=== PATIENT | male | born 1980 | race Caucasian/White ===

== ENCOUNTER → 2018-11-20 | Outpatient (CLI) | payer OTHER ==
[2018-11-20 11:51] LABS: HCT 39.3 % (39.0-53.0); HGB 13.2 gm/dL (13.0-17.5); MCH 30.6 pg (25.0-35.0); MCHC 33.6 g/dL (31.0-37.0); Mean Platelet Volume 6.5; Platelet Count 250 k/uL (150-450); RBC 4.32 m/uL (4.30-5.90); RDW 12.2 % (11.5-15.5); WBC 8.4 k/uL (3.8-10.6)
[2018-11-20 16:53] LABS: African American GFR (CKD) 108.6 (60.0-200.0); Albumin 4.4 g/dL (3.80-4.90); Albumin/Globulin Ratio 2.44 (1.60-3.17); Calcium 9.2 mg/dL (8.7-10.3); Chol/HDL Ratio 3.17; Globulin 1.8 g/dL (1.6-3.3); LDL Cholesterol,Calculated 66.2 mg/dL (0.0-131.0); Non-African American GFR(CKD) 93.7 (60.0-200.0); Potassium 4.7 mmol/L (3.5-5.5); Total Bilirubin 0.4 mg/dL (0.2-1.2); Total Protein 6.2 g/dL (6.2-8.2); VLDL Calculation 22.8 mg/dL (5.00-40.00)
[2018-11-20 18:20] LABS: Hemoglobin A1C 6.5 % (4.0-6.0)
== END | disposition home or self-care (01) ==
LOC: LABWHC1 10:22
PROVIDERS: ATTEND Nurse Practitioner Adult Health
DX: K21.9 Gastro-esophageal reflux disease without esophagitis (principal); E11.69 Type 2 diabetes mellitus with other specified complication; E78.5 Hyperlipidemia, unspecified; E03.9 Hypothyroidism, unspecified; F31.9 Bipolar disorder, unspecified
CPT/HCPCS: 36415; 80053; 80061; 82306; 82607; 83036; 84439; 84443; 85027

== ENCOUNTER → 2019-06-29 | Outpatient (CLI) | payer MEDICARE ==
[2019-06-29 15:57] LABS: African American GFR (CKD) 108.6 (60.0-200.0); Albumin 4.1 g/dL (3.80-4.90); Albumin/Globulin Ratio 2.28 (1.60-3.17); Anion Gap 14.4 mmol/L (4.00-12.00); Calcium 9.1 mg/dL (8.7-10.3); Carbon Dioxide 26.6 mmol/L (21.6-31.8); Chol/HDL Ratio 3.39; Globulin 1.8 g/dL (1.6-3.3); LDL Cholesterol,Calculated 67.8 mg/dL (0.0-131.0); Non-African American GFR(CKD) 93.7 (60.0-200.0); Potassium 4.6 mmol/L (3.5-5.5); Total Bilirubin 0.3 mg/dL (0.2-1.2); Total Protein 5.9 g/dL (6.2-8.2); VLDL Calculation 30.2 mg/dL (5.00-40.00); Valproic Acid (Depakene) 60.3 ug/mL (50.0-100.0)
[2019-06-29 16:06] LABS: T4, Free (Free Thyroxine) 1.2 ng/dL (0.80-1.80)
[2019-06-29 16:53] LABS: Hemoglobin A1C 8.2 % (4.0-6.0)
== END | disposition home or self-care (01) ==
LOC: LABWHC1 09:47
PROVIDERS: ATTEND Nurse Practitioner Adult Health
DX: E11.69 Type 2 diabetes mellitus with other specified complication (principal); E03.9 Hypothyroidism, unspecified; E78.5 Hyperlipidemia, unspecified; F31.9 Bipolar disorder, unspecified
CPT/HCPCS: 36415; 80053; 80061; 80164; 82306; 83036; 84439; 84443

== ENCOUNTER → 2019-11-02 | Outpatient (CLI) | payer MEDICARE, OTHER ==
[2019-11-02 18:39] LABS: African American GFR (CKD) 107.9 (60.0-200.0); Anion Gap 11.8 mmol/L (4.00-12.00); Calcium 9.3 mg/dL (8.7-10.3); Carbon Dioxide 28.2 mmol/L (21.6-31.8); Chol/HDL Ratio 3.28; LDL Cholesterol,Calculated 59.8 mg/dL (0.0-131.0); Non-African American GFR(CKD) 93.1 (60.0-200.0); Potassium 4.2 mmol/L (3.5-5.5); VLDL Calculation 22.2 mg/dL (5.00-40.00)
[2019-11-02 22:18] LABS: Hemoglobin A1C 8.2 % (4.0-6.0)
== END | disposition home or self-care (01) ==
LOC: LABWHC1 11:01
PROVIDERS: ATTEND Nurse Practitioner Adult Health
DX: E11.69 Type 2 diabetes mellitus with other specified complication (principal); E55.9 Vitamin D deficiency, unspecified; E03.9 Hypothyroidism, unspecified; E78.5 Hyperlipidemia, unspecified
CPT/HCPCS: 36415; 80048; 80061; 82306; 83036; 84443

== ENCOUNTER → 2020-01-30 | Outpatient (CLI) | payer MEDICARE, OTHER ==
[2020-01-30 18:28] LABS: African American GFR (CKD) 96.1 (60.0-200.0); Anion Gap 9.3 mmol/L (4.00-12.00); BUN/Creat Ratio 18.18 Ratio (12.00-20.00); Calcium 9.6 mg/dL (8.7-10.3); Carbon Dioxide 32.7 mmol/L (21.6-31.8); Chol/HDL Ratio 3.09; Non-African American GFR(CKD) 82.9 (60.0-200.0); Potassium 4.2 mmol/L (3.5-5.5)
[2020-01-30 20:10] LABS: Hemoglobin A1C 6.4 % (4.0-6.0)
[2020-01-30 21:21] LABS: Microalbumin Creatinine Ratio <30 mg/g Creat (0-30); Urine Creatinine 19.4 mg/dL
== END | disposition home or self-care (01) ==
LOC: LABWHC1 11:40
PROVIDERS: ATTEND Nurse Practitioner Adult Health
DX: E11.65 Type 2 diabetes mellitus with hyperglycemia (principal); E78.5 Hyperlipidemia, unspecified
CPT/HCPCS: 36415; 80048; 80061; 82043; 82570; 83036

== ENCOUNTER → 2020-08-22 | Outpatient (CLI) | payer MEDICARE, OTHER ==
--- NOTE | 2020-08-22 14:36 | US ---
EXAMINATION TYPE: US scrotum with doppler. Grayscale and color Doppler Duplex imaging performed of t robert scrotum. DATE OF EXAM: 08/22/2020 COMPARISON: NONE CLINICAL HISTORY: N50.89 Testicular lump. Enlarged right testicle x 1 year EXAM MEASUREMENTS: TESTICLES: Right Testicle: 4.6 x 2.3 x 2.2 cm Left Testicle: 4.8 x 2.1 x 2.9 cm EPIDIDYMIS HEAD: Right Epididymis: 1.0 cm Left Epididymis: 1.2 cm Doppler performed to assess for testicular vascularity; good bilateral color flow and waveforms are s een. There is no evidence of testicular torsion. Presence of hydroceles: right 9.3cm with internal debris Presence of varicoceles: no IMPRESSION: Right debris-containing hydrocele.
== END | disposition home or self-care (01) ==
LOC: RADUSWWP 13:49
PROVIDERS: ATTEND Internal Medicine
DX: N43.3 Hydrocele, unspecified (principal)
CPT/HCPCS: 76870; 93975

== ENCOUNTER → 2020-12-20 | Outpatient (CLI) | payer MEDICARE, OTHER ==
--- NOTE | 2020-12-20 16:50 | CONS ---
CONSULTATION DATE OF SERVICE: 12/20/2020 This 40-year-old gentleman has been evaluated in Sleep Center for obstructive sleep apnea-hypopnea syndrome. HISTORY OF PRESENT ILLNESS/SLEEP-WAKE EVALUATION: The patient was diagnosed with obstructive sleep apnea 5 years ago in another institution. He was on treatment with CPAP. Recently he had some problems with the CPAP and at the present time he is using the CPAP of his , actually. His sleep schedule is from 9 or 9:30 p.m. until 11 a.m., basically 7 days a week. No problems with falling asleep, although has a TV set in bedroom. He sleeps on the side position. He sometimes has severe snoring, wakes up from sleep once with nocturia. During the day, he takes one nap at 2:30 p.m. [place] Sleepiness Scale is 5. No history of hypnagogic hallucinations, sleep paralysis or cataplexy. PAST MEDICAL HISTORY: Positive for depression, asthma, diabetes mellitus, hypothyroidism, swelling of the legs. PAST SURGICAL HISTORY: Surgery for pilonidal cyst, hernia repair. FAMILY HISTORY: Heart problems, cancer. REVIEW OF SYSTEMS: No fevers. No double vision. No recent chest pain. No shortness of breath. No abdominal pain. No bleeding episodes. No blood in the urine. No seizure episodes. Snoring, awakenings from sleep, episodes of sleepiness. PHYSICAL EXAMINATION: GENERAL: Pleasant gentleman without distress. VITAL SIGNS: BP 141/85, HR 90, RR 20, height 6 feet 0 inches, weight 339.2, body mass index 45.9, temperature 97.6, oxygen saturation at room air 96%. HEENT: PERRLA, EOMI, evaluation of oropharynx showed tongue protrudes midline. Extremely low position of soft palate; Mallampati IV. NECK: Supple, no JVD. Thyroid is not palpable. Neck is wide; 20-1/2 inches in circumference. LUNGS: Clear to percussion and to auscultation. Good air exchange. No wheezing or rhonchi. HEART: S1, S2 regular. No murmurs, gallops, or rubs. ABDOMEN: Obese. EXTREMITIES: One plus ankle edema. CAB SUPERVISOR: Awake, alert, and oriented X3. Cranial nerves 2 to 7 intact. There is no fasciculation or atrophy. noted. No focal deficits observed. IMPRESSION: 1. Loud snoring, awakenings from sleep, extremely low position of soft palate, wide neck, history of obstructive sleep apnea diagnosed 5 years ago. The patient is using his 's CPAP equipment. Obstructive sleep apnea-hypopnea syndrome. 2. Morbid obesity. BMI 45.9. 3. Asthma. 4. Hyperlipidemia. 5. Depression. 6. Diabetes mellitus. 7. History of hypothyroidism. 8. Leg swelling. 9. Status post pilonidal cyst surgery. 10.Status post hernia repair. PLAN: 1. Polysomnography for evaluation of patient's breathing during sleep. 2. CPAP/BiPAP titration if sleep study confirms obstructive sleep apnea-hypopnea syndrome. 3. Preferable position during sleep on the side. 4. No driving if patient feels any sleepiness. 5. I will see patient for follow up visit to explain results of testing and following plan. 6. The patient will need to get new CPAP equipment. Thank you very much for referring this patient for consultation. Sincerely, Gaurav Gomez MD, PhD, FAASM Diplomat of [place] [employer] Sleep Medicine Board of [place] [employer] Handle Sewer of [facility] [place] MMODL / KAYLAN: [id number] /
== END ==
LOC: SLEEP 13:58
PROVIDERS: ATTEND Internal Medicine
DX: G47.33 Obstructive sleep apnea (adult) (pediatric) (principal); E66.01 Morbid (severe) obesity due to excess calories; J45.909 Unspecified asthma, uncomplicated; E78.5 Hyperlipidemia, unspecified; F32.9 Major depressive disorder, single episode, unspecified; E11.9 Type 2 diabetes mellitus without complications; M79.89 Other specified soft tissue disorders; Z98.890 Other specified postprocedural states; Z86.39 Personal history of other endocrine, nutritional and metabolic disease; Z68.42 Body mass index [BMI] 45.0-49.9, adult; Z99.89 Dependence on other enabling machines and devices
CPT/HCPCS: 99211

== ENCOUNTER 2021-03-14 10:39 | Emergency (ER) | payer OTHER, MEDICARE ==
[2021-03-14 10:59] VITALS: TEMP 98.2
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
[2021-03-14 11:59] VITALS: BP 127/93; PULSE 70; RESP 16
== END 2021-03-14 13:18 | disposition home or self-care (01) ==
LOC: EC 10:39
DX: S00.83XA Contusion of other part of head, initial encounter (principal); E11.9 Type 2 diabetes mellitus without complications; V43.52XA Car driver injured in collision with other type car in traffic accident, initial encounter; Y92.410 Unspecified street and highway as the place of occurrence of the external cause
CPT/HCPCS: 70450; 72125; 99284

== ENCOUNTER → 2021-05-08 | Outpatient (CLI) | payer MEDICARE, OTHER ==
--- NOTE | 2021-05-08 17:38 | SFUN ---
SLEEP CENTER FOLLOW UP NOTE DATE OF SERVICE: 05/08/2021 This 40-year-old gentleman has been followed in Sleep Center for follow-up visit for evaluation and treatment of obstructive sleep apnea-hypopnea syndrome. The patient has a history of obstructive sleep apnea documented in the past in another institution. The patient continues to use his CPAP equipment every night, although his CPAP unit is old and needs to be replaced. Sleep study was done as a polysomnogram last year, and then we repeated the sleep study with a home sleep apnea test. The patient continues to use CPAP equipment every night; he did this before the sleep tests also. The sleep studies did not show significant respiratory abnormalities either time. Home test was not sufficient for reading because it was less than 4 hours of recording. During polysomnogram at night, patient also slept only 2 hours 12 minutes. So basically both sleep studies technically do not allow any conclusion about patient's respiration. Most probably, studies were false-negative, because again the patient continued to use his CPAP machine every night and patient who was using the machine for many years. The study could be negative which was done on the following night since the previous night patient used CPAP equipment. [place] Sleepiness Scale today is 7. MEDICATIONS: 1. Atorvastatin 10 mg once a day. 2. Benztropine 0.5 mg twice a day. 3. Divalproex 500 mg 3 tablets at bedtime. 4. Fluoxetine 20 mg 3 capsules once a day. 5. Furosemide 20 mg once a day. 6. Glipizide 10 mg once a day. 7. Januvia 100 mg once a day. PHYSICAL EXAMINATION: GENERAL: Pleasant patient in no distress. VITAL SIGNS: BP 128/76, HR 83, RR 20, weight 339.2 pounds, height 6 feet, body mass index 46, temperature 97.5, oxygen saturation at room air 98%. HEENT: PERRLA, EOMI, evaluation of oropharynx showed tongue protrudes midline. Extremely low position of soft palate; Mallampati IV. NECK: Supple, no JVD. Thyroid is not palpable. Wide neck. LUNGS: Clear to percussion and to auscultation. Good air exchange. No wheezing or rhonchi. HEART: S1, S2 regular. No murmurs, gallops, or rubs. ABDOMEN: Obese. EXTREMITIES: No clubbing or cyanosis. BIAZZI NITRATOR OPERATOR: Awake, alert, and oriented X3. Cranial nerves 2 to 7 intact. There is no fasciculation or atrophy. noted. No focal deficits observed. IMPRESSION: 1. Obstructive sleep apnea-hypopnea syndrome for 5 years, diagnosed in another institution. Sleep studies in 2020 showed insufficient recording during the home sleep apnea test and very short sleep time during the polysomnogram. Test was done on the next day after a long period of time using CPAP equipment. The patient continues to use CPAP equipment every night. Machine is old. 2. Morbid obesity. 3. Asthma. 4. Hyperlipidemia. 5. Depression. 6. Diabetes mellitus. 7. History of hypothyroidism. 8. Swelling of the legs. 9. Status post pilonidal cyst surgery. 10.Status post hernia repair. PLAN: 1. Repeat home sleep apnea test. Recording should be done for at least 4 hours. 2. Following plan after reviewing results of sleep study. Patient will need prescription for a new CPAP unit. 3. Losing weight. 4. No driving if feeling any sleepiness. Thank you very much for allowing me to participate in the management of your patient. Sincerely, Gaurav Gomez MD, PhD, FAASM Diplomat of [place] [employer] Sleep Medicine Board of [place] [employer] Shotweld Operator of [facility] [place] MMODL / KAYLAN: [id number] /
== END ==
LOC: SLEEP 14:45
PROVIDERS: ATTEND Internal Medicine
DX: G47.33 Obstructive sleep apnea (adult) (pediatric) (principal); E66.01 Morbid (severe) obesity due to excess calories; J45.909 Unspecified asthma, uncomplicated; E78.5 Hyperlipidemia, unspecified; F32.A Depression, unspecified; E03.9 Hypothyroidism, unspecified; M79.89 Other specified soft tissue disorders; E11.9 Type 2 diabetes mellitus without complications; Z98.890 Other specified postprocedural states; Z99.89 Dependence on other enabling machines and devices; Z68.42 Body mass index [BMI] 45.0-49.9, adult; Z79.84 Long term (current) use of oral hypoglycemic drugs; Z79.899 Other long term (current) drug therapy

== ENCOUNTER → 2021-09-25 | Outpatient (CLI) | payer MEDICARE, OTHER ==
--- NOTE | 2021-09-25 11:58 | P.PN ---
Subjective DATE: [] FOLLOW UP VISIT. Patient with obstructive sleep apnea hypopnea syndrome return to sleep center for follow-up visit. Recently patient had sleep study which documented obstructive sleep apnea hypopnea syndrome. Patient was initiated on PAP therapy and today is first visit after treatment was started. Patient was able to use PAP equipment every night for the whole night. She sleeps better and feel better during the day while CPAP treatment was started. The patient does not have significant problems with the mask, PAP pressure and humidification. [place] sleepiness scale is 4. I checked information from PAP unit. PAP unit pressure 5-18, average 13.3 cm H2O. Usage is 100 % nights and 83% for more then 4 hours per night, average 6 hours 38 minutes per night. Leak is 23 l/m, which is in acceptable range. Apnea Hypopnea Index is 0.8, which is normal. MEDICATIONS:1. Atorvastatin 2. Fluoxetine 3. Furosemide 4. Glipizide 5. Benztropine 6. Devaloroex During physical exam: GENERAL: A pleasant patient without any distress. VITAL SIGNS: BP 119/76, HR 82, RR 18 , weight 320.6, temperature 96.6, oxygen saturation at room air 98% . HEENT: PERRLA, EOMI.low position of soft palate, Mallapati 4 . NECK: Supple. No JVD. LUNGS: Clear to percussion and to auscultation. Good air exchange. No wheezing or rhonchi. HEART: S1, S2 regular. ABDOMEN: Soft and nontender. Obese EXTREMITIES: No clubbing or cyanosis. PHARMACEUTICAL PLANT OPERATOR: Awake, alert, and oriented x3. No focal deficit. Impressions: 1. Obstructive sleep apnea-hypopnea syndrome. Patient demonstrated great compliance with treatment, benefiting from treatment. 2. Obesity, patient lost 19 pounds since previous visit. 3. Depression. 4. Asthma. 5. Hyperlipidemia. 6. Diabetes mellitus. 7. History of hypothyroidism. 8. Status post hernia repair. Plan: 1. Continue using PAP equipment every night for the whole night. 2. To change air filter at least 1-2 times per month. 3. PAP unit should stay lower then position of the head. 4. Advised patient to remove all remaining water from humidifier canister daily and make it dry after each usage. Refill canister with fresh distilled water before each usage. 5. Sleep hygiene with regular time in bed for at least 8 hours. 6. Precautions related to driving. No driving if feel any sleepiness. 7. I will maintain prescription for PAP supplies including mask, tube, filters. 8. Follow up visit in 6 months or earlier if patient has any problems. 9. Continue losing weight. Thank you very much for allowing me to participate in the management of your patient. Gaurav Gomez MD, PhD, FAASM. Diplomat of [place] [employer] Medicine, Sleep Medicine Board by [place] [employer] Staple Laster of [facility] [place]
== END ==
LOC: SLEEP 10:56
PROVIDERS: ATTEND Internal Medicine
DX: G47.33 Obstructive sleep apnea (adult) (pediatric) (principal); E66.9 Obesity, unspecified; F32.A Depression, unspecified; J45.909 Unspecified asthma, uncomplicated; E78.5 Hyperlipidemia, unspecified; E11.9 Type 2 diabetes mellitus without complications; E03.9 Hypothyroidism, unspecified; Z98.890 Other specified postprocedural states; Z99.89 Dependence on other enabling machines and devices; Z79.84 Long term (current) use of oral hypoglycemic drugs

== ENCOUNTER → 2022-01-07 | Outpatient (CLI) | payer MEDICARE, OTHER ==
--- NOTE | 2022-01-07 16:21 | US ---
EXAMINATION TYPE: US venous doppler duplex LE LT DATE OF EXAM: 01/07/2022 4:08 PM COMPARISON: NONE CLINICAL HISTORY: M79.89 OTHER SPECIFIED SOFT TISSUE DISORDERS. Left leg swelling x 1 week SIDE PERFORMED: Left TECHNIQUE: The lower extremity deep venous system is examined utilizing real time linear array sonog walker with graded compression, doppler sonography and color-flow sonography. VESSELS IMAGED: Common Femoral Vein Deep Femoral Vein Greater Saphenous Vein * Femoral Vein Popliteal Vein Small Saphenous Vein * Proximal Calf Veins (* superficial vessels) Left Leg: Appears negative for DVT Grayscale, color doppler, spectral doppler imaging performed of the deep veins of the left lower extr emity. There is normal flow, compressibility, vascular waveforms. IMPRESSION: No ultrasound evidence for acute DVT in the left lower extremity.
== END | disposition home or self-care (01) ==
LOC: RADUSWWP 15:40
PROVIDERS: ATTEND Internal Medicine
DX: M79.89 Other specified soft tissue disorders (principal)

== ENCOUNTER → 2022-03-26 | Outpatient (CLI) | payer MEDICARE, OTHER ==
--- NOTE | 2022-03-26 11:50 | P.PN ---
Subjective DATE: [] FOLLOW UP VISIT. Patient with obstructive sleep apnea hypopnea syndrome return to sleep center for follow-up visit. Information from previous visit have been reviewed. Patient is using PAP equipment every night for the whole night, getting PAP supplies in time. The patient does not have significant problems with the mask, PAP unit and humidification. [place] sleepiness scale is 0, which is perfect. I checked information from PAP unit. PAP unit pressure 5-18, average 9.5 cm H2O. Usage is 100% and 73 % for more then 4 hours, average 6 hours per night. Leak is 31.6 l/m, which is in acceptable range. Apnea Hypopnea Index is 0.8, which is normal. Air filter is in extremely bad condition, was not changed for 6 months. MEDICATIONS:1. Omeprazole 20 mg once a day 2. Calchicine 0.6 mg once a day 3. Fluoxetine 20 mg 3 capsules once a day a day 4. Atorvastatin 10 mg once a day 5. Benztropine 0.5 mg twice a day 6. Januvia 100 mg once a day 7. Furosemide 20 mg once a day During physical exam: GENERAL: A pleasant patient without any distress. VITAL SIGNS: BP 113/78, HR 79, RR 16, weight 316.4, temperature 97.5, oxygen saturation at room air 96 % . HEENT: PERRLA, EOMI.low position of soft palate, Mallapati 4 . NECK: Supple. No JVD. LUNGS: Clear to percussion and to auscultation. Good air exchange. No wheezing or rhonchi. HEART: S1, S2 regular. ABDOMEN: Soft and nontender. Obese EXTREMITIES: No clubbing or cyanosis. COLD FOOD PACKER: Awake, alert, and oriented x3. No focal deficit. Impressions: 1. Obstructive sleep apnea-hypopnea syndrome. Patient demonstrated great compliance with treatment, benefiting from treatment. 2. Obesity, patient lost 4 pounds comparing to the previous visit. 3. Depression. 4. diabetes mellitus. 5. Hyperlipidemia. 6. History of hypothyroidism. 7. Asthma. 8. Status post hernia repair. Plan: 1. Continue using PAP equipment every night for the whole night. To change air filter immediately. 2. To change air filter at least 1-2 times per month. 3. PAP unit should stay lower then position of the head. 4. Advised patient to remove all remaining water from humidifier canister daily and make it dry after each usage. Refill canister with fresh distilled water before each usage. 5. Sleep hygiene with regular time in bed for at least 8 hours. 6. Precautions related to driving. No driving if feel any sleepiness. 7. I will maintain prescription for PAP supplies including mask, tube, filters. 8. Follow up visit in 6 months or earlier if patient has any problems. 9. Watching and losing weight. Thank you very much for allowing me to participate in the management of your patient. Gaurav Gomez MD, PhD, FAASM. Diplomat of [place] [employer] Sleep Medicine, Sleep Medicine Board by [place] [employer] Order Desk Caller of [facility] [place]
== END ==
LOC: SLEEP 11:07
PROVIDERS: ATTEND Internal Medicine
DX: G47.33 Obstructive sleep apnea (adult) (pediatric) (principal); Z99.89 Dependence on other enabling machines and devices; E66.9 Obesity, unspecified; F32.A Depression, unspecified; E11.9 Type 2 diabetes mellitus without complications; E78.5 Hyperlipidemia, unspecified; J45.909 Unspecified asthma, uncomplicated; Z98.890 Other specified postprocedural states; Z86.39 Personal history of other endocrine, nutritional and metabolic disease
CPT/HCPCS: 99212

== ENCOUNTER → 2022-10-22 | Outpatient (CLI) | payer MEDICARE, OTHER ==
--- NOTE | 2022-10-22 11:36 | P.PN ---
Subjective DATE: 10/22/2022 FOLLOW UP VISIT. Patient with obstructive sleep apnea hypopnea syndrome return to sleep center for follow-up visit. Information from previous visit have been reviewed. Patient is using PAP equipment every night for the whole night, getting PAP supplies in time. The patient does not have significant problems with the mask, PAP unit and humidification. [place] sleepiness scale is 5, which is normal. I checked information from PAP unit. PAP unit pressure 5-18, average 10.4 cm H2O. Usage is 100% and 83 % for more then 4 hours, average 6.25 hours per night. Leak is 27.0 l/m, which is in acceptable range. Apnea Hypopnea Index is 0.7, which is normal. MEDICATIONS:1. Fluoxetine 20 mg 3 cupsules a day 2. Omeprazole 20 mg once a day 3. Atorvastatin 10 mg once a day 4. Benztropine 0.5 mg twice a day 5. Januvia 100 mg once a day 6. Furosemide 20 mg once a day During physical exam: GENERAL: A pleasant patient without any distress. VITAL SIGNS: BP 109/72, HR 74, RR 18, weight 314.0, temperature 97.9, oxygen saturation at room air 99 % . HEENT: PERRLA, EOMI.low position of soft palate, Mallapati 4 . NECK: Supple. No JVD. LUNGS: Clear to percussion and to auscultation. Good air exchange. No wheezing or rhonchi. HEART: S1, S2 regular. ABDOMEN: Soft and nontender.[] EXTREMITIES: No clubbing or cyanosis. SOLID WASTE DIVISION SUPERVISOR: Awake, alert, and oriented x3. No focal deficit. Impressions: 1. Obstructive sleep apnea-hypopnea syndrome. Patient demonstrated great compliance with treatment, benefiting from treatment. 2. Diabetes mellitus. 3. History of depression. 4. Hyperlipidemia. 5. History of hypothyroidism. 6. History of asthma. 7. Status post hernia repair. 8. CT, patient lost 2 pounds since previous visit. Plan: 1. Continue using PAP equipment every night for the whole night. 2. To change air filter at least 1-2 times per month. 3. PAP unit should stay lower then position of the head. 4. Advised patient to remove all remaining water from humidifier canister daily and make it dry after each usage. Refill canister with fresh distilled water before each usage. 5. Sleep hygiene with regular time in bed for at least 8 hours. 6. Precautions related to driving. No driving if feel any sleepiness. 7. I will maintain prescription for PAP supplies including mask, tube, filters. 8. Follow up visit in 6 months or earlier if patient has any problems. 9. Watching and continue losing weight. Thank you very much for allowing me to participate in the management of your patient. Gaurav Gomez MD, PhD, FAASM. Diplomat of [place] [employer] Sleep Medicine, Sleep Medicine Board by [place] [employer] Seafood Packer of [facility] [place]
== END ==
LOC: 3 N SLEEP 10:45
PROVIDERS: ATTEND Internal Medicine
DX: G47.33 Obstructive sleep apnea (adult) (pediatric) (principal); E03.9 Hypothyroidism, unspecified; E11.9 Type 2 diabetes mellitus without complications; E78.5 Hyperlipidemia, unspecified; F32.A Depression, unspecified; J45.909 Unspecified asthma, uncomplicated; Z79.84 Long term (current) use of oral hypoglycemic drugs; Z79.899 Other long term (current) drug therapy; Z98.890 Other specified postprocedural states
CPT/HCPCS: 99212

== ENCOUNTER → 2022-12-17 | Outpatient (CLI) | payer MEDICARE, OTHER ==
--- NOTE | 2022-12-17 11:57 | CA ---
Stress Echo Report Ashu Rodríguez Age: 42 Gender: M : 1980 Exam Date: 12/17/2022 10:17 Exam Location: [facility] Ht (in): 73 Wt (lb): 306 Ordering Physician: Gerson Ann MD Referring Physician: HAMLET,, Manager Combination: Silvia Giles RDCS Technologist Procedure CPT: Indication: R07.9 CHEST PAIN ICD-9 Codes: Rhythm: Patient History: Chest pain and shortness of breath Cardiac Medications: METFORMIN,,,,,, SERTRALINE,,,,,, QUETIAPINE,,,,,, FUMARATE,,,,,, OXCARBAZEPINE,,,,,, METOPROLOL,,,,,, LORAZEPAM,,,,,, FEROSUL,,,,, Medications in past 24 hours: Contrast: Stress Results Protocol: Rock Total dose(mL): Exercise Duration (min:sec): Max ST Depression (mm): Angina Score: Means Score: METS: 6.2 Resting HR: 78 Resting BP: 101 / 65 Peak HR: 153 Peak BP: 152 / 64 Max Predicted HR: 176 87 % Max Predicted HR Target HR: 150 Double Product: [id number] Stress Summary: BP Response: Reason for Termination: MAX EXERTION/TARGET HR Cardiac Symptoms: DIFFICULTY IN BREATHING ECG Analysis Resting ECG: Stress ECG: Arrhythmia: Echo Analysis Resting Echo: Peak Echo Analysis: MEASUREMENTS (Male/Female) Normal Values CONCLUSIONS Good exercise capacity and a Rock protocol Normal heart rate and blood pressure response Normal twelve-lead EKG at baseline with incomplete right bundle branch block pattern No ECG or echocardiographic evidence for ischemia Excellent augmentation of overall LV contractility without development of any wall motion abnormality Dr. Andrew Garcia MD (Electronically Signed) Final Date: 17 December 2022 11:56
== END | disposition home or self-care (01) ==
LOC: RADNMMAIN 09:43
PROVIDERS: ATTEND Internal Medicine
DX: R07.9 Chest pain, unspecified (principal)
CPT/HCPCS: 93351

== ENCOUNTER → 2023-04-10 | Outpatient (CLI) | payer MEDICARE, OTHER ==
[2023-04-10 15:59] LABS: Basophils # (A) 0.05 X 10*3/uL (0.00-0.10); Basophils % (A) 0.7 %; Eosinophils # (A) 0.27 X 10*3/uL (0.04-0.35); Eosinophils % (A) 3.9 %; HCT 38.9 % (39.6-50.0); HGB 12.7 g/dL (13.0-17.0); Lymphocytes # (A) 1.98 X 10*3/uL (0.90-5.00); Lymphocytes % (A) 28.5 %; MCH 30.4 pg (27.0-32.0); MCHC 32.6 g/dL (32.0-37.0); MCV 93.1 FL (80.0-97.0); Mean Platelet Volume 9.5 FL (9.5-12.2); Monocytes # (A) 0.55 X 10*3/uL (0.20-1.00); Monocytes % (A) 7.9 %; NRBC Per 100 WBC 0 X 10*3/uL (0.00-0.01); Neutrophils # (A) 4.05 X 10*3/uL (1.80-7.70); Neutrophils % (A) 58.3 %; Platelet Count 260 X 10*3/uL (140-440); RBC 4.18 X 10*6/uL (4.40-5.60); WBC 6.95 X 10*3/uL (4.50-10.00)
[2023-04-10 16:57] LABS: % Iron Saturation 17.58 (15.00-50.00); ALT 15 U/L (10-49); AST 15 U/L (14-35); Albumin 4.4 g/dL (3.8-4.9); Alkaline Phosphatase 56 U/L (41-126); Blood Urea Nitrogen 12.9 mg/dL (9.0-27.0); Carbon Dioxide 29.4 mmol/L (21.6-31.8); Chloride 98 mmol/L (96-109); Globulin 2.1 g/dL (1.6-3.3); Glucose 153 mg/dL (70-110); Iron 64 UG/DL (65-175); LDL Cholesterol,Calculated 58.3 mg/dL (0.0-131.0); Magnesium 1.7 mg/dL (1.5-2.4); Potassium 4.8 mmol/L (3.5-5.5); Sodium 140 mmol/L (135-145); T4, Free (Free Thyroxine) 1.48 ng/dL (0.80-1.80); Total Bilirubin 0.3 mg/dL (0.3-1.2); Total Iron Binding Capacity 364 UG/DL (228-460); Total Protein 6.5 g/dL (6.2-8.2); Uric Acid 7.5 mg/dL (3.7-8.7); VLDL Calculation 18.48 mg/dL (5.00-40.00)
[2023-04-10 18:06] LABS: Valproic Acid (Depakene) 59.2 UG/ML (50.0-100.0)
== END | disposition home or self-care (01) ==
LOC: LABWHC1 10:10
PROVIDERS: ATTEND Internal Medicine
DX: E11.9 Type 2 diabetes mellitus without complications (principal); M10.9 Gout, unspecified; E03.9 Hypothyroidism, unspecified; F31.9 Bipolar disorder, unspecified; D64.9 Anemia, unspecified; Z79.899 Other long term (current) drug therapy
CPT/HCPCS: 36415; 80053; 80061; 80164; 82306; 82607; 82728; 82746; 83036; 83540; 83550; 83735; 84439; 84443; 84550; 85025

== ENCOUNTER → 2023-05-06 | Outpatient (CLI) | payer MEDICARE, OTHER ==
--- NOTE | 2023-05-06 11:36 | P.PN ---
Subjective DATE: 05/06/2023 FOLLOW UP VISIT. Patient with obstructive sleep apnea hypopnea syndrome return to sleep center for follow-up visit. Information from previous visit have been reviewed. Patient is using PAP equipment every night for the whole night, getting PAP supplies in time. The patient does not have significant problems with the mask, PAP unit and humidification. [place] sleepiness scale is 0. I checked information from PAP unit. PAP unit pressure 5-18, average 17 cm H2O. Usage is 90 % for more then 4 hours, average 5.7 hours per night. Leak is 30 l/m, which is in acceptable range. Apnea Hypopnea Index is 0.7, which is normal. According to patient occasionally he has snoring. MEDICATIONS:1. Omeprazole 20 mg once a day 2. Atorvastatin 10 mg once a day 3. Fluoxetine 20 mg 3 capsules a day 4. Januvia 100 mg once a day 5. Benztropine 0.5 mg twice a day 6. Furosemide 20 mg once a day During physical exam: GENERAL: A pleasant patient without any distress. VITAL SIGNS: BP 106/68, HR 72, RR 16 , weight 304.0, temperature 97.6, oxygen saturation at room air 98 % . HEENT: PERRLA, EOMI.low position of soft palate, Mallapati 4 . NECK: Supple. No JVD. LUNGS: Clear to percussion and to auscultation. Good air exchange. No wheezing or rhonchi. HEART: S1, S2 regular. ABDOMEN: Soft and nontender. Obese EXTREMITIES: No clubbing or cyanosis. TECHNICAL PLANNER: Awake, alert, and oriented x3. No focal deficit. Impressions: 1. Obstructive sleep apnea-hypopnea syndrome. Patient demonstrated great compliance with treatment, benefiting from treatment. 2. History of depression. 3. Diabetes mellitus. 4. Hyperlipidemia. 5. History of hypothyroidism. 6. Obesity, patient lost 10 pounds comparing with previous visit. 7. History of asthma. 8. Status post hernia repair. Plan: 1. Continue using PAP equipment every night for the whole night. I adjusted pressure in CPAP to the range 5-19 with a goal to prevent snoring. 2. To change air filter at least 1-2 times per month. 3. PAP unit should stay lower then position of the head. 4. Advised patient to remove all remaining water from humidifier canister daily and make it dry after each usage. Refill canister with fresh distilled water before each usage. 5. Sleep hygiene with regular time in bed for at least 8 hours. 6. Precautions related to driving. No driving if feel any sleepiness. 7. I will maintain prescription for PAP supplies including mask, tube, filters. 8. Watching and continue losing weight. 9. Follow up visit in 6 months or earlier if patient has any problems. Thank you very much for allowing me to participate in the management of your patient. Gaurav Gomez MD, PhD, FAASM. Diplomat of [place] [employer], Sleep Medicine Board by [place] [employer] Engineer First Assistant of [facility] [place]
== END ==
LOC: 3 N SLEEP 10:47
PROVIDERS: ATTEND Internal Medicine
DX: G47.33 Obstructive sleep apnea (adult) (pediatric) (principal); F32.A Depression, unspecified; E11.9 Type 2 diabetes mellitus without complications; E78.5 Hyperlipidemia, unspecified; E03.9 Hypothyroidism, unspecified; E66.9 Obesity, unspecified; J45.909 Unspecified asthma, uncomplicated; Z98.890 Other specified postprocedural states; Z79.899 Other long term (current) drug therapy; Z79.84 Long term (current) use of oral hypoglycemic drugs; Z99.89 Dependence on other enabling machines and devices

== ENCOUNTER → 2024-01-27 | Outpatient (CLI) | payer MEDICARE, OTHER ==
[2024-01-27 18:15] LABS: Basophils # (A) 0.07 X 10*3/uL (0.00-0.10); Basophils % (A) 0.8 %; Eosinophils # (A) 0.19 X 10*3/uL (0.04-0.35); Eosinophils % (A) 2.3 %; HCT 33.4 % (39.6-50.0); HGB 11.1 g/dL (13.0-17.0); Lymphocytes # (A) 2.95 X 10*3/uL (0.90-5.00); Lymphocytes % (A) 35.3 %; MCHC 33.2 g/dL (32.0-37.0); MCV 90.3 FL (80.0-97.0); Mean Platelet Volume 9.4 FL (9.5-12.2); Monocytes # (A) 0.83 X 10*3/uL (0.20-1.00); Monocytes % (A) 9.9 %; NRBC Per 100 WBC 0 X 10*3/uL (0.00-0.01); Neutrophils # (A) 4.22 X 10*3/uL (1.80-7.70); Neutrophils % (A) 50.6 %; Platelet Count 220 X 10*3/uL (140-440); WBC 8.35 X 10*3/uL (4.50-10.00)
[2024-01-27 18:47] LABS: % Iron Saturation 14.51 (15.00-50.00); BUN/Creat Ratio 10.88 Ratio (12.00-20.00); Blood Urea Nitrogen 8.7 mg/dL (9.0-27.0); Calcium 9.1 mg/dL (8.7-10.3); Carbon Dioxide 26.9 mmol/L (21.6-31.8); Chloride 99 mmol/L (96-109); Glucose 114 mg/dL (70-110); Iron 56 UG/DL (65-175); Potassium 4.6 mmol/L (3.5-5.5); Sodium 137 mmol/L (135-145); Total Iron Binding Capacity 386 UG/DL (228-460)
== END | disposition home or self-care (01) ==
LOC: LABWHC1 14:21
PROVIDERS: ATTEND Internal Medicine
DX: D64.9 Anemia, unspecified (principal)
CPT/HCPCS: 36415; 80048; 82607; 82728; 82746; 83540; 83550; 85025

== ENCOUNTER → 2024-01-27 | Outpatient (CLI) | payer MEDICARE, OTHER ==
[2024-01-27 15:14] VITALS: BP 131/80; PULSE 72; RESP 18; TEMP 97.9
--- NOTE | 2024-01-27 15:32 | P.PROGSL ---
Subjective DATE: 01/27/2024 FOLLOW UP VISIT. Patient with obstructive sleep apnea hypopnea syndrome return to sleep center for follow-up visit. Information from previous visit have been reviewed. Patient was not able to use CPAP equipment for last several months, because his power cord is broken. [place] sleepiness scale is 4, which is normal. Patient brought his CPAP unit, but again I was not able to check it because power cord is broken. During previous visit patient showed great compliance with CPAP treatment. MEDICATIONS have been reviewed, please see below. During physical exam: GENERAL: A pleasant patient without any distress. VITAL SIGNS: Please see below, weight is 335 lbs. HEENT: PERRLA, EOMI.low position of soft palate, Mallapati 4 . NECK: Supple. No JVD. LUNGS: Clear to percussion and to auscultation. Good air exchange. No wheezing or rhonchi. HEART: S1, S2 regular. ABDOMEN: Soft and nontender. Obese EXTREMITIES: No clubbing or cyanosis. HEDIS ANALYST: Awake, alert, and oriented x3. No focal deficit. Impressions: 1. Obstructive sleep apnea-hypopnea syndrome. Patient was not able to use his CPAP equipment for last several months, because electrical cord for CPAP unit have been broken. 2. Obesity, BMI 48.0, patient increased weight on 31 pounds comparing with previous visit. 3. Diabetes mellitus. 4. History of depression. 5. Hyperlipidemia. 6. History of hypothyroidism. 7. History of asthma. 8. Status post hernia repair. Prescription for electrical cord for CPAP unit to get as soon as possible. Plan: 1. Continue using PAP equipment every night for the whole night. 2. Sleep hygiene with regular time in bed for at least 7.5-8 hours 3. PAP unit should stay lower then position of the head. 4. Advised patient to remove all remaining water from humidifier canister daily and make it dry after each usage. Refill canister with fresh distilled water before each usage. 5. Watching weight. 6. Precautions related to driving. No driving if feel any sleepiness. 7. I will maintain prescription for PAP supplies including mask, tube, filters. 8. Follow up visit in 2 months or earlier if patient has any problems. Thank you very much for allowing me to participate in the management of your patient. Gaurav Gomez MD, PhD, FAASM. Diplomat of [place] [employer], Sleep Medicine Board by [place] [employer] Buffing Wheel Raker of [facility] [place] Objective - Vital Signs Vital Signs: Vital Signs Temp 97.9 F 01/27/24 15:13 Pulse 72 01/27/24 15:13 Resp 18 01/27/24 15:13 BP 131/80 01/27/24 15:13 Pulse Ox 97 01/27/24 15:13 FiO2 Intake & Output 01/26/24 01/27/24 01/27/24 18:59 06:59 18:59 Weight 151.953 kg Home Medications: Home Medications Medication Instructions Recorded Confirmed Type Atorvastatin [Lipitor] 10 mg PO DAILY 01/27/24 01/27/24 History Benztropine Mesylate [Cogentin] 0.5 mg PO BID 01/27/24 01/27/24 History FLUoxetine HCL [PROzac] 20 mg PO DAILY 01/27/24 01/27/24 History Furosemide [Lasix] 20 mg PO DAILY 01/27/24 01/27/24 History Omeprazole 20 mg PO DAILY 01/27/24 01/27/24 History sitaGLIPtin [Januvia] 100 mg PO DAILY 01/27/24 01/27/24 History
== END ==
LOC: 3 N SLEEP 15:02
PROVIDERS: ATTEND Internal Medicine
DX: G47.33 Obstructive sleep apnea (adult) (pediatric) (principal); E66.9 Obesity, unspecified; E11.9 Type 2 diabetes mellitus without complications; E78.5 Hyperlipidemia, unspecified; Z98.890 Other specified postprocedural states; Z87.09 Personal history of other diseases of the respiratory system; Z86.39 Personal history of other endocrine, nutritional and metabolic disease; Z86.59 Personal history of other mental and behavioral disorders; Z99.89 Dependence on other enabling machines and devices; Z68.42 Body mass index [BMI] 45.0-49.9, adult; Z79.84 Long term (current) use of oral hypoglycemic drugs
CPT/HCPCS: 99212

== ENCOUNTER 2024-02-09 10:03 | Emergency (ER) | payer MEDICARE, OTHER ==
[2024-02-09 10:09] VITALS: TEMP 98.5
--- NOTE | 2024-02-09 10:30 | ED ---
General Adult HPI - General Chief complaint: Dizziness Stated complaint: dizzy Time Seen by Provider: 02/09/24 10:10 Source: patient, RN notes reviewed, old records reviewed Mode of arrival: ambulatory Limitations: no limitations - History of Present Illness Initial comments: This is a 43-year-old male who presents to the emergency department stating that he is dizzy and needs difficult to walk because he keeps walking into things and he cannot walk straight line. Patient states last night he got up his states he fell into a book because hit his side of his head but did not lose consciousness and did not fall to the ground. Patient states he had a little bit of soreness to the temporal region on the left but it is gone now. Patient states at that time he does not recall being dizzy. Patient states when he woke up later he has been dizzy and has been hard to walk a straight line since then. Patient denies any numbness or weakness. Patient denies any visual disturbance. Patient [place] any chest pain palpitations difficulty breathing shortness of breath. Patient states he has a history of diabetes and schizoaffective disorder. - Related Data Home Medications Medication Instructions Recorded Confirmed Atorvastatin [Lipitor] 10 mg PO DAILY 01/27/24 01/27/24 Benztropine Mesylate [Cogentin] 0.5 mg PO BID 01/27/24 01/27/24 FLUoxetine HCL [PROzac] 20 mg PO DAILY 01/27/24 01/27/24 Furosemide [Lasix] 20 mg PO DAILY 01/27/24 01/27/24 Omeprazole 20 mg PO DAILY 01/27/24 01/27/24 sitaGLIPtin [Januvia] 100 mg PO DAILY 01/27/24 01/27/24 Allergies Allergy/AdvReac Type Severity Reaction Status Date / Time grass pollen AdvReac Itching Verified 02/09/24 10:09 Review of Systems ROS Statement: Those systems with pertinent positive or pertinent negative responses have been documented in the HPI. ROS Other: All systems not noted in ROS Statement are negative. Past Medical History Past Medical History: Diabetes Mellitus History of Any Multi-Drug Resistant Organisms: None Reported Past Surgical History: Hernia Repair Additional Past Surgical History / Comment(s): cyst removal surgery Past Psychological History: Schizoaffective Disorder Smoking Status: Never smoker Past Alcohol Use History: None Reported Past Drug Use History: None Reported General Exam - General Exam Comments Initial Comments: GENERAL: Patient is well-developed and well-nourished. Patient is nontoxic and well- hydrated and is in no acute distress. ENT: Neck is soft and supple. No significant lymphadenopathy is noted. Oropharynx is clear. Moist mucous membranes. Neck has full range of motion without eliciting any pain. EYES: The sclera were anicteric and conjunctiva were pink and moist. Extraocular movements were intact and pupils were equal round and reactive to light. Eyelids were unremarkable. PULMONARY: Unlabored respirations. Good breath sounds bilaterally. No audible rales rhonchi or wheezing was noted. CARDIOVASCULAR: There is a regular rate and rhythm without any murmurs gallops or rubs. ABDOMEN: Soft and nontender with normal bowel sounds. No palpable organomegaly was noted. There is no palpable pulsatile mass. SKIN: Skin is clear with no lesions or rashes and otherwise unremarkable. NEUROLOGIC: Patient is alert and oriented x3. Cranial nerves II through XII are grossly intact. Motor and sensory are also intact. Normal speech, volume and content. Symmetrical smile. [id number] testing is normal bilaterally MUSCULOSKELETAL: Normal extremities with adequate strength and full range of motion. LYMPHATICS: No significant lymphadenopathy is noted PSYCHIATRIC: Normal psychiatric evaluation. Limitations: no limitations Course Vital Signs 02/09/24 02/09/24 02/09/24 10:05 10:20 11:46 Temperature 98.5 F Pulse Rate 84 73 Pulse Rate [ 74 Sitting Custodial Supervisor] Pulse Rate [ 85 Standing Custodial Supervisor ] Pulse Rate [ 74 Supine Custodial Supervisor] Respiratory 18 20 Rate Blood Pressure 133/76 104/63 Blood Pressure 123/87 [Left Arm Sitting] Blood Pressure 132/71 [Left Arm Standing] Blood Pressure 134/67 [Left Arm Supine] O2 Sat by Pulse 99 96 Oximetry 02/09/24 14:07 Temperature Pulse Rate 74 Pulse Rate [ Sitting Custodial Supervisor] Pulse Rate [ Standing Custodial Supervisor ] Pulse Rate [ Supine Custodial Supervisor] Respiratory 18 Rate Blood Pressure 114/64 Blood Pressure [Left Arm Sitting] Blood Pressure [Left Arm Standing] Blood Pressure [Left Arm Supine] O2 Sat by Pulse 97 Oximetry Medical Decision Making - Medical Decision Making EKG is interpreted by myself. EKG shows sinus rhythm at 75 bpm NH interval is 158 QRS is 88 QT interval is 406 QTc is 435. Patient's EKG shows no ST segment elevation Was pt. sent in by a medical professional or institution (ANALY Stern, TANK RIVETER, urgent care, hospital, or long-term...) When possible be specific @ -No Did you speak to anyone other than the patient for history (EMS, parent, family, police, friend...)? What history was obtained from this source @ -No Did you review nursing and triage notes (agree or disagree)? Why? @ -I reviewed and agree with nursing and triage notes Were old charts reviewed (outside hosp., previous admission, EMS record, old EKG, old radiological studies, urgent care reports/EKG's, long-term records)? Report findings @ -No old charts were reviewed Differential Diagnosis? @ -Differential Dizziness: Benign paroxysmal positional Vertigo, Meniere's disease, otitis media, acoustic neuroma, vertebrobasilar insufficiency, cerebellar stroke, encephalitis, hypovolemic, arrhythmia, coronary artery syndrome, anemia, this is not meant to be an all-inclusive list EKG interpreted by me (3pts min.). @ -As above X-rays interpreted by me (1pt min.). @ -Chest x-ray shows no acute abnormality CT interpreted by me (1pt min.). @ -CT of the brain shows no acute abnormality U/S interpreted by me (1pt. min.). @ -None done What testing was considered but not performed or refused? (CT, X-rays, U/S, labs)? Why? @ -None What meds were considered but not given or refused? Why? @ -None Did you discuss the management of the patient with other professionals (professionals i.e. ANALY Stern, TANK RIVETER, lab, RT, psych nurse, pediatric social worker, hand welt butter, teacher, special technical operations officer, child welfare caseworker)? Give summary @ -No Was smoking cessation discussed for >3mins.? @ -No Was critical care preformed (if so, how long)? @ -No Were there social determinants of health that impacted care today? How? (Homelessness, low income, unemployed, alcoholism, drug addiction, transportation, low edu. Level, literacy, decrease access to med. care, care home, rehab)? @ -No Was there de-escalation of care discussed even if they declined (Discuss DNR or withdrawal of care, Hospice)? DNR status @ -No What co-morbidities impacted this encounter? (DM, HTN, Smoking, COPD, CAD, Cancer, CVA, ARF, Chemo, Hep., AIDS, mental health diagnosis, sleep apnea, mor bid obesity)? @ -None Was patient admitted / discharged? Hospital course, mention meds given and rou te, prescriptions, significant lab abnormalities, going to OR and other pertinent info. @ -Patient was given Antivert in the emergency department. Patient was up and ambulating and he stated he felt much better but was slightly dizzy at this time but much better than earlier. When I went back into tell the patient the results of his labs and CT scan I told the patient this could be some vertigo and he said well that makes sense because I have Mnire's disease when I initially asked the patient if he had any medical problems he initially denied any medical problems and then when I asked him if he had any medications he listed medications for his diabetes and he says he takes medications for psychiatric schizoaffective disorder but he did not remember what they were any stated he had no other problems at that time but now he states he has Mnire's disease Undiagnosed new problem with uncertain prognosis? @ -No Drug Therapy requiring intensive monitoring for toxicity (Heparin, Nitro, Insulin, Cardizem)? @ -No Were any procedures done? @ -No Diagnosis/symptom? @ -Vertigo Acute, or Chronic, or Acute on Chronic? @ -Acute Uncomplicated (without systemic symptoms) or Complicated (systemic symptoms)? @ -Complicated Side effects of treatment? @ -No Exacerbation, Progression, or Severe Exacerbation? @ -No Poses a threat to life or bodily function? How? (Chest pain, [place], [place], pneumonia, PE, COPD, DKA, ARF, appy, cholecystitis, CVA, Diverticulitis, Homicidal, Suicidal, threat to staff... and all critical care pts) @ -No - Lab Data Result diagrams: 02/09/24 10:42 02/09/24 10:42 Lab Results 02/09/24 02/09/24 02/09/24 Range/Units 10:42 10:42 10:42 WBC 7.2 (3.8-10.6) k/uL RBC 4.05 L (4.30-5.90) m/uL Hgb 12.2 L (13.0-17.5) gm/dL Hct 36.9 L (39.0-53.0) % MCV 91.0 (80.0-100.0) fL MCH 30.2 (25.0-35.0) pg MCHC 33.2 (31.0-37.0) g/dL RDW 12.3 (11.5-15.5) % Plt Count 242 (150-450) k/uL MPV 6.9 Neutrophils % 60 % Lymphocytes % 28 % Monocytes % 6 % Eosinophils % 4 % Basophils % 0 % Neutrophils # 4.3 (1.3-7.7) k/uL Lymphocytes # 2.1 (1.0-4.8) k/uL Monocytes # 0.4 (0-1.0) k/uL Eosinophils # 0.3 (0-0.7) k/uL Basophils # 0.0 (0-0.2) k/uL Sodium 137 (137-145) mmol/L Potassium 4.6 (3.5-5.1) mmol/L Chloride 98 (98-107) mmol/L Carbon Dioxide 29 (22-30) mmol/L Anion Gap 10 mmol/L BUN 13 (9-20) mg/dL Creatinine 0.82 (0.66-1.25) mg/dL Est GFR (CKD-EPI)AfAm >90 (>60 ml/min/1.73 sqM) Est GFR (CKD-EPI)NonAf >90 (>60 ml/min/1.73 sqM) Glucose 237 H (74-99) mg/dL POC Glucose (mg/dL) (70-110) mg/dL POC Glu Embedded Systems Engineer ID Calcium 9.4 (8.4-10.2) mg/dL Magnesium 1.6 (1.6-2.3) mg/dL Total Bilirubin 0.4 (0.2-1.3) mg/dL AST 22 (17-59) U/L ALT 20 (4-49) U/L Alkaline Phosphatase 60 (38-126) U/L Troponin I <0.012 (0.000-0.034) ng/mL Total Protein 6.5 (6.3-8.2) g/dL Albumin 4.0 (3.5-5.0) g/dL 02/09/24 Range/Units 10:52 WBC (3.8-10.6) k/uL RBC (4.30-5.90) m/uL Hgb (13.0-17.5) gm/dL Hct (39.0-53.0) % MCV (80.0-100.0) fL MCH (25.0-35.0) pg MCHC (31.0-37.0) g/dL RDW (11.5-15.5) % Plt Count (150-450) k/uL MPV Neutrophils % % Lymphocytes % % Monocytes % % Eosinophils % % Basophils % % Neutrophils # (1.3-7.7) k/uL Lymphocytes # (1.0-4.8) k/uL Monocytes # (0-1.0) k/uL Eosinophils # (0-0.7) k/uL Basophils # (0-0.2) k/uL Sodium (137-145) mmol/L Potassium (3.5-5.1) mmol/L Chloride (98-107) mmol/L Carbon Dioxide (22-30) mmol/L Anion Gap mmol/L BUN (9-20) mg/dL Creatinine (0.66-1.25) mg/dL Est GFR (CKD-EPI)AfAm (>60 ml/min/1.73 sqM) Est GFR (CKD-EPI)NonAf (>60 ml/min/1.73 sqM) Glucose (74-99) mg/dL POC Glucose (mg/dL) 224 H (70-110) mg/dL POC Glu Embedded Systems Engineer ID Campos Jose Juan Calcium (8.4-10.2) mg/dL Magnesium (1.6-2.3) mg/dL Total Bilirubin (0.2-1.3) mg/dL AST (17-59) U/L ALT (4-49) U/L Alkaline Phosphatase (38-126) U/L Troponin I (0.000-0.034) ng/mL Total Protein (6.3-8.2) g/dL Albumin (3.5-5.0) g/dL Disposition Clinical Impression: Vertigo Disposition: HOME SELF-CARE Condition: Good Instructions (If sedation given, give patient instructions): Vertigo (ED) Is patient prescribed a controlled substance at d/c from ED?: No Referrals: Gerson Ann DO [Primary Care Provider] - 1-2 days Time of Disposition: 12:59
[2024-02-09 10:53] LABS: Glucose,Whole Blood 224 mg/dL (70-110)
[2024-02-09 10:54] LABS: Basophils % (A) 0 %; Eosinophils # (A) 0.3 k/uL (0-0.7); Eosinophils % (A) 4 %; HCT 36.9 % (39.0-53.0); HGB 12.2 gm/dL (13.0-17.5); Lymphocytes # (A) 2.1 k/uL (1.0-4.8); Lymphocytes % (A) 28 %; MCH 30.2 pg (25.0-35.0); MCHC 33.2 g/dL (31.0-37.0); Mean Platelet Volume 6.9; Monocytes # (A) 0.4 k/uL (0-1.0); Monocytes % (A) 6 %; Neutrophils # (A) 4.3 k/uL (1.3-7.7); Neutrophils % (A) 60 %; Platelet Count 242 k/uL (150-450); RBC 4.05 m/uL (4.30-5.90); RDW 12.3 % (11.5-15.5); WBC 7.2 k/uL (3.8-10.6)
[2024-02-09] MEDS: SODIUM CHLORIDE 0.9% 500 ML 500 ML IV STA (10:55)
[2024-02-09 11:13] LABS: ALT 20 U/L (4-49); AST 22 U/L (17-59); African American GFR (CKD) >90 (>60 ml/min/1.73 sqM); Alkaline Phosphatase 60 U/L (38-126); Anion Gap 10 mmol/L; Blood Urea Nitrogen 13 mg/dL (9-20); Calcium 9.4 mg/dL (8.4-10.2); Carbon Dioxide 29 mmol/L (22-30); Chloride 98 mmol/L (98-107); Glucose 237 mg/dL (74-99); Magnesium 1.6 mg/dL (1.6-2.3); Non-African American GFR(CKD) >90 (>60 ml/min/1.73 sqM); Potassium 4.6 mmol/L (3.5-5.1); Sodium 137 mmol/L (137-145); Total Bilirubin 0.4 mg/dL (0.2-1.3); Total Protein 6.5 g/dL (6.3-8.2)
--- NOTE | 2024-02-09 11:18 | CT ---
EXAMINATION TYPE: CT brain wo con CT DLP: 1166.4 mGycm, Automated exposure control for dose reduction was used. DATE OF EXAM: 02/09/2024 11:08 AM COMPARISON: CT brain C-spine March 14, 2021 CLINICAL INDICATION:Male, 43 years old with history of ataxia, Ataxia, dizziness TECHNIQUE: Brain: Multiple axial CT images of the brain were obtained without IV contrast. . Coronal and sagitta l reformats reviewed. FINDINGS: Brain: Extra-axial spaces: No abnormal extra-axial fluid collections. Ventricular system: Within normal limits Cerebral parenchyma: No acute intraparenchymal hemorrhage or mass effect. The loomis-white junction is well differentiated. Cerebellum: Unremarkable. Mass effect: No evidence of midline shift. Intracranial vasculature: unremarkable Soft tissues: Normal. Calvarium/osseous structures: No depressed skull fracture. Paranasal sinuses and mastoid air cells: Clear Visualized orbits: Orbital contents are intact. IMPRESSION: No acute intracranial process. [facility], , 02/09/2024 11:16 AM
--- NOTE | 2024-02-09 11:37 | XR ---
EXAMINATION TYPE: XR chest 2V DATE OF EXAM: 02/09/2024 11:14 AM COMPARISON: None CLINICAL INDICATION: Male, 43 years old with history of Chest Pain, , TECHNIQUE: PA and lateral views FINDINGS: The cardiomediastinal silhouette, aorta, and pulmonary vasculature are within normal limits. Some mi nimal strandy atelectasis medial right base. Otherwise, no consolidation or pleural effusion. IMPRESSION: No definite acute process. [facility], , 02/09/2024 11:35 AM
[2024-02-09] MEDS: MECLIZINE 25 MG TAB PO STA (11:51)
[2024-02-09 14:09] VITALS: BP 114/64; PULSE 74; RESP 18
== END 2024-02-09 14:08 | disposition home or self-care (01) ==
LOC: EC 10:03
DX: R42 Dizziness and giddiness (principal); Z88.8 Allergy status to other drugs, medicaments and biological substances
CPT/HCPCS: 36415; 70450; 71046; 80053; 83735; 84484; 85025; 93005; 96360; 99284

== ENCOUNTER → 2024-05-04 | Outpatient (CLI) | payer MEDICARE, OTHER ==
[2024-05-04 15:34] VITALS: BP 119/60; PULSE 73; RESP 18; TEMP 97.6
--- NOTE | 2024-05-04 17:43 | P.PROGSL ---
Subjective DATE: 05/04/2024 FOLLOW UP VISIT. Patient with obstructive sleep apnea hypopnea syndrome return to sleep center for follow-up visit. Information from previous visit have been reviewed. Patient is using PAP equipment every night for the whole night, getting PAP supplies in time. The patient does not have significant problems with the mask, PAP unit and humidification. [place] sleepiness scale is 5, which is normal. I checked information from PAP unit. PAP unit pressure 5-19, average 9 cm H2O. Usage is 70% for more then 4 hours, average 3.8 hours per night. Leak is 13 l/m, which is in acceptable range. Apnea Hypopnea Index is 0.3, which is normal. MEDICATIONS 1. Ativan 1 mg as needed once a day 2. Benztropine 0.5 mg twice a day 3. Depakote 500 mg 3 tablets at bedtime 4. Fluoxetine 40 mg 2 capsules in the morning 5. Invega 9 mg extended release once a day 6. Furosemide 20 mg once a day 7. Glipizide 5 mg once a day 8. Lipitor 10 mg once a day 9. Synthroid 75 mcg once a day During physical exam: GENERAL: A pleasant patient without any distress. VITAL SIGNS: Please see below, weight is 340.0 lbs. HEENT: PERRLA, EOMI.low position of soft palate, Mallapati 4 . NECK: Supple. No JVD. LUNGS: Clear to percussion and to auscultation. Good air exchange. No wheezing or rhonchi. HEART: S1, S2 regular. ABDOMEN: Soft and nontender.[] EXTREMITIES: No clubbing or cyanosis. GROCERY SUPERVISOR: Awake, alert, and oriented x3. No focal deficit. Impressions: 1. Obstructive sleep apnea-hypopnea syndrome. Patient demonstrated borderline compliance with treatment, benefiting from treatment. 2. Obesity, BMI 48.0, patient increased weight on 5 pounds comparing with previous visit. 3. Diabetes mellitus. 4. History of depression. 5. Hyperlipidemia. 6. History of hypothyroidism. 7. History of asthma. 8. Status post hernia repair. I changed range of the pressure in AutoPap unit to 5-15 cm of water. Plan: 1. Continue using PAP equipment every night for the whole night. 2. Sleep hygiene with regular time in bed for at least 7.5-8 hours 3. PAP unit should stay lower then position of the head. 4. Advised patient to remove all remaining water from humidifier canister daily and make it dry after each usage. Refill canister with fresh distilled water before each usage. 5. Watching and losing weight. 6. Precautions related to driving. No driving if feel any sleepiness. 7. I will maintain prescription for PAP supplies including mask, tube, filters. 8. Follow up visit in 8 months or earlier if patient has any problems. Thank you very much for allowing me to participate in the management of your patient. Gaurav Gomez MD, PhD, FAASM. Diplomat of [place] [employer], Sleep Medicine Board by [place] [employer] Software Developer Intern of [facility] Pit[facility] Objective - Vital Signs Vital Signs: Vital Signs Temp 97.6 F 05/04/24 15:32 Pulse 73 05/04/24 15:32 Resp 18 05/04/24 15:32 BP 119/60 05/04/24 15:32 Pulse Ox 98 05/04/24 15:32 FiO2 Intake & Output 05/03/24 05/04/24 05/04/24 18:59 06:59 18:59 Weight 154.221 kg Home Medications: Home Medications Medication Instructions Recorded Confirmed Type Atorvastatin [Lipitor] 10 mg PO DAILY 01/27/24 01/27/24 History Benztropine Mesylate [Cogentin] 0.5 mg PO BID 01/27/24 05/04/24 History FLUoxetine HCL [PROzac] 20 mg PO DAILY 01/27/24 01/27/24 History Furosemide [Lasix] 20 mg PO DAILY 01/27/24 01/27/24 History Omeprazole 20 mg PO DAILY 01/27/24 01/27/24 History sitaGLIPtin [Januvia] 100 mg PO DAILY 01/27/24 01/27/24 History Atorvastatin [Lipitor] 10 mg PO HS 05/04/24 05/04/24 History Colchicine 0.6 mg PO DAILY 05/04/24 05/04/24 History Divalproex ER [Depakote ER] 500 mg PO DAILY 05/04/24 05/04/24 History FLUoxetine HCL 40 mg PO DAILY 05/04/24 05/04/24 History Ferrous Sulfate [Feosol] 325 mg PO DAILY 05/04/24 05/04/24 History Furosemide [Lasix] 20 mg PO DAILY 05/04/24 05/04/24 History LORazepam [Ativan] 1 mg PO DAILY 05/04/24 05/04/24 History Levothyroxine Sodium [Synthroid] 75 mcg PO DAILY 05/04/24 05/04/24 History Omeprazole [PriLOSEC] 20 mg PO -BRKFST 05/04/24 05/04/24 History Paliperidone IM [Invega Sustenna] 234 mg IM DIRECTED 05/04/24 05/04/24 History Paliperidone IM [Invega Sustenna] 234 mg IM DAILY 05/04/24 05/04/24 History Paliperidone [Invega] 9 mg PO DAILY 05/04/24 05/04/24 History glipiZIDE XL [Glucotrol Xl] 5 mg PO DAILY 05/04/24 05/04/24 History metFORMIN HCL ER [Glucophage XR] 500 mg PO BID 05/04/24 05/04/24 History sitaGLIPtin [Januvia] 100 mg PO DAILY 05/04/24 05/04/24 History
== END ==
LOC: 3 N SLEEP 15:08
PROVIDERS: ATTEND Internal Medicine
DX: G47.33 Obstructive sleep apnea (adult) (pediatric) (principal); E66.9 Obesity, unspecified; E11.9 Type 2 diabetes mellitus without complications; E78.5 Hyperlipidemia, unspecified; Z68.41 Body mass index [BMI] 40.0-44.9, adult; Z86.59 Personal history of other mental and behavioral disorders; Z86.39 Personal history of other endocrine, nutritional and metabolic disease; Z87.09 Personal history of other diseases of the respiratory system; Z91.048 Other nonmedicinal substance allergy status
CPT/HCPCS: 99212